=== PATIENT | female | born 1995 | race Caucasian/White ===

== ENCOUNTER 2017-10-10 22:51 | Emergency (ER) | payer OTHER ==
[~2017-10-10] VITALS: Wt 97.5 kg
[2017-10-10] MEDS ORDERED: CEFADROXIL500 M1 PO (23:05)
[2017-10-10] MEDS ORDERED: Motrin,Rufen800 MG PO (23:05)
== END 2017-10-10 23:42 | disposition home or self-care (01) ==
LOC: ED 22:51
DX: L02.412 Cutaneous abscess of left axilla (principal); L02.411 Cutaneous abscess of right axilla

== ENCOUNTER 2018-07-17 10:49 | Emergency (ER) | payer OTHER ==
[~2018-07-17] VITALS: Ht 157.4 cm; Wt 95.3 kg
[~2018-07-17 10:49] MED LIST: CEFADROXIL500 M1 PO; Motrin,Rufen800 MG PO
[2018-07-17] MEDS ORDERED: TESSALON PERLE100 M1 PO (13:59)
[2018-07-17] MEDS ORDERED: PREDNISONE20 M1 PO (13:59)
[2018-07-17] MEDS ORDERED: PROVENTIL HFA6.7 GM INH (13:59)
== END 2018-07-17 14:12 | disposition home or self-care (01) ==
LOC: ED 10:49
DX: J40 Bronchitis, not specified as acute or chronic (principal); F17.200 Nicotine dependence, unspecified, uncomplicated

== ENCOUNTER 2019-03-27 12:46 | Emergency (ER) | payer OTHER ==
[~2019-03-27] VITALS: Ht 157.4 cm; Wt 108.9 kg
[~2019-03-27 12:46] MED LIST changes: +PREDNISONE20 M1 PO; +PROVENTIL HFA6.7 GM INH; +TESSALON PERLE100 M1 PO
[2019-03-27 13:18] LABS: BASO # 0.1 10*3/uL (0.0-0.1); BASO % 0.9 % (0.0-1.0); EOS # 0.7 10*3/uL (0.0-0.4); EOS % 7.2 % (1.0-4.0); HEMATOCRIT 45.8 % (37.0-47.0); HEMOGLOBIN 15.2 g/dl (12.0-16.0); LYMPH # 3.5 10*3/uL (1.3-4.4); LYMPH % 35.1 % (27.0-41.0); MEAN CORPUSCULAR HGB 29.9 pg (27.0-31.0); MEAN CORPUSCULAR HGB CONC 33.2 g/dl (33.0-37.0); MEAN PLATELET VOLUME 11.5 fl (9.6-12.3); MONO # 0.7 10*3/uL (0.1-1.0); MONO % 6.6 % (3.0-9.0); NEUT % 49.8 % (47.0-73.0); PLATELET COUNT AUTOMATED 280 10*3/uL (130-400); RED BLOOD COUNT 5.09 10*6/uL (4.10-5.10); RED CELL DISTRI WIDTH 12.8 % (0-14.5)
[2019-03-27 13:34] LABS: ALBUMIN 3.7 gm/dl (3.1-4.5); ALKALINE PHOSPHATASE 70 U/L (45-117); BUN 9 mg/dl (7-24); CHLORIDE 108 mmol/L (98-107); CREATININE 0.93 mg/dL (0.55-1.02); SGOT/AST 24 IU/L (3-35); SGPT/ALT 55 U/L (12-78); SODIUM 139 mmol/L (136-145); TOTAL PROTEIN 7.3 gm/dL (6.4-8.2)
[2019-03-27] MEDS ORDERED: MEDROL DOSEPAK4 MG PO (14:21)
== END 2019-03-27 14:26 | disposition home or self-care (01) ==
LOC: ED 12:46
PROVIDERS: Physician Assistant
DX: J98.01 Acute bronchospasm (principal); Z91.09 Other allergy status, other than to drugs and biological substances; Z79.899 Other long term (current) drug therapy; Z87.891 Personal history of nicotine dependence

== ENCOUNTER 2020-07-09 18:23 | Emergency (ER) | payer OTHER ==
[~2020-07-09] VITALS: Ht 157.4 cm; Wt 117.9 kg
[~2020-07-09 18:23] MED LIST changes: +MEDROL DOSEPAK4 MG PO
[2020-07-09 19:17] LABS: BASO # 0.1 10*3/uL (0.0-0.1); EOS # 0.5 10*3/uL (0.0-0.4); EOS % 3.4 % (1.0-4.0); HEMATOCRIT 46.7 % (37.0-47.0); LYMPH # 3.9 10*3/uL (1.3-4.4); LYMPH % 28.9 % (27.0-41.0); MEAN CELL VOLUME 89.6 fl (81.0-99.0); MEAN CORPUSCULAR HGB 28.6 pg (27.0-31.0); MEAN CORPUSCULAR HGB CONC 31.9 g/dl (33.0-37.0); MEAN PLATELET VOLUME 11.7 fl (9.6-12.3); MONO # 0.8 10*3/uL (0.1-1.0); MONO % 6.2 % (3.0-9.0); PLATELET COUNT AUTOMATED 323 10*3/uL (130-400); RED BLOOD COUNT 5.21 10*6/uL (4.10-5.10); WHITE BLOOD COUNT 13.4 10*3/uL (4.8-10.8)
[2020-07-09 19:20] LABS: BILIRUBIN Negative (Negative); BLOOD 3+ (Negative); CLARITY Cloudy (Clear); COLOR Yellow (Yellow); GLUCOSE Negative (Negative); KETONE Trace (Negative); LEUKO ESTERASE 1+ (Negative); NITRITE Negative (Negative); SPECIFIC GRAVITY 1.025 (1.001-1.030)
[2020-07-09 19:28] LABS: BACTERIA 2+; RBC 0-2 rbc/hpf (0-2)
[2020-07-09 19:29] LABS: MUCOUS TRACE
[2020-07-09 19:30] LABS: BUN 10 mg/dl (7-24); CHLORIDE 106 mmol/L (98-107); CREATININE 1.03 mg/dL (0.55-1.02); POTASSIUM 3.7 mmol/L (3.5-5.1); SODIUM 138 mmol/L (136-145)
[2020-07-09] MEDS ORDERED: CIPRO500 MG PO (21:47)
== END 2020-07-09 22:04 | disposition home or self-care (01) ==
LOC: ED 18:23
PROVIDERS: Internal Medicine
DX: N39.0 Urinary tract infection, site not specified (principal); A41.9 Sepsis, unspecified organism; F17.200 Nicotine dependence, unspecified, uncomplicated; Z88.0 Allergy status to penicillin; Z88.8 Allergy status to other drugs, medicaments and biological substances; Z79.899 Other long term (current) drug therapy

== ENCOUNTER → 2021-04-08 | Outpatient (CLI) | payer OTHER ==
[~2021-04-08] MED LIST changes: +CIPRO500 MG PO
== END | disposition home or self-care (01) ==
LOC: COVID19 15:14
PROVIDERS: ATTEND Internal Medicine
DX: Z11.52 Encounter for screening for COVID-19 (principal)

== ENCOUNTER 2024-02-29 20:13 | Emergency (ER) | payer OTHER ==
[~2024-02-29] VITALS: Ht 157.4 cm; Wt 117.9 kg
[2024-02-29] MEDS ORDERED: Meclizine Hydrochloride 25 MG TAB PO ONE (21:40)
[2024-02-29 22:10] LABS: BASO # 0.1 10*3/uL (0.0-0.1); BASO % 0.8 % (0.0-1.0); EOS # 0.4 10*3/uL (0.0-0.4); HEMATOCRIT 45.8 % (37.0-47.0); LYMPH # 4.3 10*3/uL (1.3-4.4); LYMPH % 31.7 % (27.0-41.0); MEAN CELL VOLUME 88.4 fl (81.0-99.0); MEAN CORPUSCULAR HGB 28.6 pg (27.0-31.0); MEAN CORPUSCULAR HGB CONC 32.3 g/dl (33.0-37.0); MEAN PLATELET VOLUME 11.3 fl (9.6-12.3); MONO # 1.2 10*3/uL (0.1-1.0); MONO % 8.9 % (3.0-9.0); NEUT # 7.5 10*3/uL (2.3-7.9); NEUT % 55.2 % (47.0-73.0); PLATELET COUNT AUTOMATED 357 10*3/uL (130-400); RED BLOOD COUNT 5.18 10*6/uL (4.10-5.10); WHITE BLOOD COUNT 13.5 10*3/uL (4.8-10.8)
[2024-02-29 22:29] LABS: BUN 10 mg/dl (9-23); CHLORIDE 104 mmol/L (98-107); POTASSIUM 3.8 mmol/L (3.4-5.1)
[2024-02-29] MEDS ORDERED: Meclizine25 MG PO (22:55)
[2024-02-29] MEDS ORDERED: Ondansetron4 MG PO (22:55)
== END 2024-02-29 23:02 | disposition home or self-care (01) ==
LOC: ED 20:13
PROVIDERS: Physician Assistant Medical
DX: R42 Dizziness and giddiness (principal); Z20.822 Contact with and (suspected) exposure to COVID-19; R11.0 Nausea; G43.909 Migraine, unspecified, not intractable, without status migrainosus; F17.200 Nicotine dependence, unspecified, uncomplicated; Z88.0 Allergy status to penicillin; Z88.8 Allergy status to other drugs, medicaments and biological substances; Z98.890 Other specified postprocedural states